=== PATIENT | female | born 1965 | race Two or more races ===

== ENCOUNTER 2020-04-29 09:45 | Inpatient (IN) | payer OTHER ==
[~2020-04-29] VITALS: Ht 165.1 cm; Wt 65.8 kg
[2020-04-29] MEDS ORDERED: INVOKAMET 50-11 EACH PO (15:11)
[2020-04-29] MEDS ORDERED: LEVOTHYROXINE25 MCG PO (15:12)
[2020-04-29] MEDS ORDERED: TOPAMAX PO (15:12)
[2020-04-29] MEDS ORDERED: ARMOUR THYROID60 M1 PO (15:13)
[2020-04-29] MEDS ORDERED: OZEMPIC PO (15:14)
[2020-04-29] MEDS ORDERED: [UNRECOGNIZED DRUG - OTHER] IM (15:15)
[2020-05-03] MEDS ORDERED: OZEMPIC1 MG/0.75 (11:47)
[2020-05-03] MEDS ORDERED: TOPAMAX200 MG PO (11:48)
[2020-05-03] MEDS ORDERED: EMGALITY P120 MG/1 M (11:49)
== END 2020-05-08 14:51 | disposition home or self-care (01) | DRG 330 ==
LOC: O/R 05-03 05:44 → SURH 05-03 13:24 → O/R 05-03 18:00 → SURH 05-08 14:51
PROVIDERS: ADMIT Colon & Rectal Surgery; ATTEND Colon & Rectal Surgery
PROC: 0DJD8ZZ Inspection of Lower Intestinal Tract, Via Natural or Artificial Opening Endoscopic (ICD-10-PCS; 2020-05-03)
PROC: 0DTN4ZZ Resection of Sigmoid Colon, Percutaneous Endoscopic Approach (ICD-10-PCS; principal; 2020-05-03 07:00)
DX: K57.32 Diverticulitis of large intestine without perforation or abscess without bleeding (principal); J95.89 Other postprocedural complications and disorders of respiratory system, not elsewhere classified; J98.11 Atelectasis; E03.8 Other specified hypothyroidism; E11.9 Type 2 diabetes mellitus without complications; Z79.4 Long term (current) use of insulin

== ENCOUNTER 2021-05-05 07:29 | Day surgery (SDC) | payer OTHER ==
[~2021-05-05 07:29] MED LIST: ARMOUR THYROID60 M1 PO; EMGALITY P120 MG/1 M; INVOKAMET 50-11 EACH PO; LEVOTHYROXINE25 MCG PO; OZEMPIC PO; OZEMPIC1 MG/0.75; TOPAMAX PO; TOPAMAX200 MG PO; [UNRECOGNIZED DRUG - OTHER] IM
== END 2021-05-05 11:00 | disposition home or self-care (01) ==
LOC: AMB-ENDOS 07:29
PROVIDERS: ATTEND Colon & Rectal Surgery
DX: K62.4 Stenosis of anus and rectum (principal); K64.0 First degree hemorrhoids; Z20.822 Contact with and (suspected) exposure to COVID-19

== ENCOUNTER 2022-11-21 05:45 | Day surgery (SDC) | payer OTHER ==
[~2022-11-21 05:45] MED LIST changes: +AMOX1TAB5 PO; +NP THYROID60 MG; +TOPAMAX200 MG; +XOPENEX0.63 MG/3
[2022-11-22] MEDS ORDERED: MOUNJARO2.5 MG/0.5 (13:53)
[2022-11-22] MEDS ORDERED: MOUNJARO5 MG/0.5 M (13:53)
== END 2022-11-21 13:05 | disposition home or self-care (01) ==
LOC: AMB-ENDOS 05:45
PROVIDERS: ATTEND Colon & Rectal Surgery
DX: C18.9 Malignant neoplasm of colon, unspecified (principal); K62.4 Stenosis of anus and rectum; K57.32 Diverticulitis of large intestine without perforation or abscess without bleeding; K92.1 Melena; Z88.6 Allergy status to analgesic agent; K64.8 Other hemorrhoids; Z20.822 Contact with and (suspected) exposure to COVID-19; I10 Essential (primary) hypertension; E03.9 Hypothyroidism, unspecified

== ENCOUNTER 2022-11-22 01:55 | Inpatient (IN) | payer OTHER ==
[~2022-11-22] VITALS: Ht 165.1 cm; Wt 71.2 kg
--- NOTE | 2022-11-22 02:55 | NUR ---
SE RECIBE PTE FEMENINA DE 57 ANOS ALERTA Y ORIENTADA X3 QUIEN AL MOMENTO REFIERE SOB. PTE AL MOMENTO SPO2 A 92%. SE KRYSTINA EKG Y SE PRESENTA A DR ALIDA. SE DARIN MUESTRAS BAJO MEDIDAS ACEPTICAS. PTE PEND A RESULTADOS DE LAB.
--- NOTE | 2022-11-22 03:01 | NUR ---
SE REALIZAN MUESTRAS DE YUMIKO POR ORDEN MEDICA, SE REALIZA CANALIZACIONDE VENA, SE COLOCA CANULA DE OXIGENO, EKG, MONITOR CARDIACO, OXIMETRIA Y SE MANTIENE WILLIAMS SPERA DE RESULTADOS DE LABORATORIO.
[2022-11-22] MEDS ORDERED: MOUNJARO5 MG/0.5 M (13:53)
[2022-11-22] MEDS ORDERED: MOUNJARO2.5 MG/0.5 (13:53)
== END 2022-12-05 13:22 | disposition home or self-care (01) | DRG 393 ==
LOC: ER 01:55 → SURG 09:22 → SEC-K 09:22 → SURG 13:23
PROVIDERS: ADMIT Colon & Rectal Surgery; ATTEND Colon & Rectal Surgery
PROC: 3E0F7GC Introduction of Other Therapeutic Substance into Respiratory Tract, Via Natural or Artificial Opening (ICD-10-PCS; 2022-11-22)
PROC: 4A12X4Z Monitoring of Cardiac Electrical Activity, External Approach (ICD-10-PCS; 2022-11-22)
PROC: 3E0F7SF Introduction of Other Gas into Respiratory Tract, Via Natural or Artificial Opening (ICD-10-PCS; 2022-11-22)
PROC: BW21Y0Z Computerized Tomography (CT Scan) of Abdomen and Pelvis using Other Contrast, Unenhanced and Enhanced (ICD-10-PCS; principal; 2022-11-24)
PROC: 02HV33Z Insertion of Infusion Device into Superior Vena Cava, Percutaneous Approach (ICD-10-PCS; 2022-11-26)
PROC: 3E0436Z Introduction of Nutritional Substance into Central Vein, Percutaneous Approach (ICD-10-PCS; 2022-11-26)
PROC: BW21YZZ Computerized Tomography (CT Scan) of Abdomen and Pelvis using Other Contrast (ICD-10-PCS; 2022-11-29)
PROC: BW21ZZZ Computerized Tomography (CT Scan) of Abdomen and Pelvis (ICD-10-PCS; 2022-12-03)
DX: K91.89 Other postprocedural complications and disorders of digestive system (principal); K63.1 Perforation of intestine (nontraumatic); K65.1 Peritoneal abscess; R06.02 Shortness of breath; R14.3 Flatulence; I10 Essential (primary) hypertension; E03.9 Hypothyroidism, unspecified; E11.9 Type 2 diabetes mellitus without complications; Z79.4 Long term (current) use of insulin

== ENCOUNTER 2024-05-15 06:00 | Outpatient (CLI) | payer OTHER ==
[~2024-05-15 06:00] MED LIST changes: +MOUNJARO2.5 MG/0.5; +MOUNJARO5 MG/0.5 M
[2024-05-15 16:14] LABS: HEMATOCRIT 41.5 % (36.0-45.00); HEMOGLOBIN 13.6 g/dL (12.0-15.00); MEAN CORPUSCULAR HEMOGLOBIN 30.2 pg (27.00-32.0); MEAN CORPUSCULAR HGB CONC 32.9 g/dl (32.0-36.0); PLATELET COUNT 237 K/uL (150-450); RED BLOOD COUNT 4.51 M/uL (4.00-6.00); RED CELL DISTRIBUTION WIDTH 14.4 % (11.5-14.5)
== END 2024-05-15 06:10 | disposition home or self-care (01) ==
LOC: LAB 06:00 → ADM 15:00 → EDSTATUS 05-19 15:00 → AMB-ENDOS 05-19 15:00
PROVIDERS: ATTEND Colon & Rectal Surgery
DX: K57.32 Diverticulitis of large intestine without perforation or abscess without bleeding (principal); K92.1 Melena; K62.4 Stenosis of anus and rectum

== ENCOUNTER 2024-09-02 05:25 | Day surgery (SDC) | payer OTHER ==
[2024-09-02] MEDS ORDERED: ONDANSETRON HCL 2 MG/ML VIAL IV STA (08:38)
[2024-09-02] MEDS ORDERED: MIDAZOLAM HCL 2 MG/2 ML VIAL IV ONE (08:45)
[2024-09-02] MEDS ORDERED: fentaNYL CITRATE 50 MCG/ML AMPUL IV PUSH ONE (08:45)
[2024-09-02] MEDS ORDERED: DIPHENHYDRAMINE HCL 50 MG/ML VIAL 1ML IV ONE (08:45)
[2024-09-02] MEDS ORDERED: ONDANSETRON HCL 2 MG/ML VIAL IV ONE (10:15)
== END 2024-09-02 10:35 | disposition home or self-care (01) ==
LOC: AMB-ENDOS 05:25 → CIR.AMB 14:00 → AMB-ENDOS 14:00
PROVIDERS: ATTEND Colon & Rectal Surgery
DX: C18.9 Malignant neoplasm of colon, unspecified (principal); K91.89 Other postprocedural complications and disorders of digestive system; Z88.6 Allergy status to analgesic agent

== ENCOUNTER 2024-09-04 13:53 | Inpatient (IN) | payer OTHER ==
[~2024-09-04] VITALS: Ht 170.2 cm; Wt 72.6 kg
--- NOTE | 2024-09-04 14:16 | NUR ---
PTE ALERTA Y ORIENTADA X3 EN COMPANIA DE FAMILIAR REFIERE VENIR POR DOLOR ABDOMINAL Y VOMITOS LUEGO DE RECIBIR AROLDO COLONOSCOPIA EL MIERCOLES. SE MIDEN S/V Y SE UBICA.
[2024-09-04] MEDS ORDERED: ONDANSETRON HCL 2 MG/ML VIAL IV ONE (16:00)
[2024-09-04] MEDS ORDERED: MEPERIDINE HCL/PF 50 MG/ML VIAL IM ONE (16:00)
[2024-09-04] MEDS ORDERED: 0.9 % SODIUM CHLORIDE 500 ML IV ONE (16:00)
[2024-09-04] MEDS ORDERED: FAMOTIDINE/PF 20 MG/2 ML VIAL IV ONE (16:00)
[2024-09-04] MEDS ORDERED: PIPERACILLIN/TAZOBACTAM SODIUM 3.375 GM VIAL IV ONE (16:15)
[2024-09-04 16:26] LABS: HEMOGLOBIN 14.8 g/dL (12.0-15.00); MEAN CELL VOLUME 90.6 fL (80.00-100.00); MEAN CORPUSCULAR HEMOGLOBIN 30.4 pg (27.00-32.0); MEAN CORPUSCULAR HGB CONC 33.5 g/dl (32.0-36.0); PLATELET COUNT 259 K/uL (150-450); RED BLOOD COUNT 4.86 M/uL (4.00-6.00); RED CELL DISTRIBUTION WIDTH 15.1 % (11.5-14.5)
[2024-09-04] MEDS ORDERED: MEPERIDINE HCL/PF 50 MG/ML VIAL IM PRN (16:45)
[2024-09-04 16:49] LABS: PARTIAL THROMBOPLASTIN TIME 31.6 SECONDS (22.0-34.0)
[2024-09-04 16:56] LABS: BILIRUBIN TOTAL 0.61 mg/dL (0.3-1.2); CALCIUM 10.8 mg/dL (8.5-10.1); CREATININE SERUM 0.66 mg/dL (0.55-1.02); GFR 91.05; GLOBULINA 4.7 G/DL (2.4-3.5); POTASSIUM 3.41 mEq/L (3.5-5.1); TOTAL PROTEIN 7.7 gm/dL (6.4-8.2)
[2024-09-04] MEDS ORDERED: ONDANSETRON HCL 2 MG/ML VIAL IV SCH (17:00)
[2024-09-04 17:01] LABS: INR 0.94; PROTHROMBIN TIME 10.3 SECONDS (9.0-11.5)
--- NOTE | 2024-09-04 17:30 | NUR ---
SE EDUCA A PACIENTE SOBRE TRATAMIENTO MEDICO EL CUAL REFIERE VENIR ENTENDER SE PROCEDE A ADMINISTRAR MEDICAMENTO SAMIA ORDEN MEDICA Y SE DARIN MUESTRAS DE LAB BAJO MEDIDAS ASEPTICAS.
[2024-09-04] MEDS ORDERED: PIPERACILLIN/TAZOBACTAM SODIUM 3.375 GM in 0.9 % SODIUM CHLORIDE 100 ML IV SCH (18:00)
[2024-09-04] MEDS ORDERED: RINGERS SOLUTION,LACTATED 1,000 ML IV ONE (20:30)
[2024-09-04] MEDS ORDERED: RINGERS SOLUTION,LACTATED 1,000 ML IV SCH (20:30)
[2024-09-04 21:15] LABS: URINE APPEARANCE Clear; URINE BILIRRUBIN Negative (NEGATIVE); URINE BLOOD Trace; URINE COLOR Yellow; URINE LEUKOCYTE Negative; URINE NITRATE Negative; URINE UROBILINOGEN 0.2 E.U./dl
[2024-09-04 21:16] LABS: URINE BACTERIA 706.8 uL (0.0-1933); URINE EPITHELIAL CELLS 25.1 uL (0.0-38.8); URINE RBC 41.9 uL (0.0-20.8); URINE WBC 37.5 uL (0.0-23.2)
[2024-09-04 22:15] LABS: URINE GLUCOSE >=1000 MG/DL (NEGATIVE); URINE KETONE 80 (NEGATIVE); URINE PROTEIN 100 (NEGATIVE)
[2024-09-05 02:51] VITALS: BP 123/79; O2SAT 99
[2024-09-05 07:36] LABS: HEMATOCRIT 38.6 % (36.0-45.00); HEMOGLOBIN 13.2 g/dL (12.0-15.00); MEAN CELL VOLUME 90.3 fL (80.00-100.00); MEAN CORPUSCULAR HGB CONC 34.3 g/dl (32.0-36.0); PLATELET COUNT 226 K/uL (150-450); RED BLOOD COUNT 4.27 M/uL (4.00-6.00); RED CELL DISTRIBUTION WIDTH 14.8 % (11.5-14.5)
[2024-09-05 08:39] LABS: ALBUMIN 2.5 gm/dL (3.4-5.0); BILIRUBIN TOTAL 0.53 mg/dL (0.3-1.2); CALCIUM 9.1 mg/dL (8.5-10.1); CREATININE SERUM 0.47 mg/dL (0.55-1.02); GFR 134.71; GLOBULINA 3.2 G/DL (2.4-3.5); PHOSPHOROUS 2.1 mg/dL (2.5-4.9); POTASSIUM 3.5 mEq/L (3.5-5.1); TOTAL PROTEIN 5.7 gm/dL (6.4-8.2)
[2024-09-05 10:16] VITALS: BP 142/87; O2SAT 98
[2024-09-05] MEDS ORDERED: POTASSIUM PHOS,M-BASIC-D-BASIC 3 MM/ML VIAL IV ONE (12:00)
[2024-09-05] MEDS ORDERED: fentaNYL CITRATE 50 MCG/ML AMPUL IV PUSH ONE (14:00)
[2024-09-05] MEDS ORDERED: MIDAZOLAM HCL 2 MG/2 ML VIAL IV PUSH ONE (14:00)
[2024-09-05] MEDS ORDERED: DEXTROSE 50 % IN WATER 0.5 G/ML DISP.SYRIN IV PRN (15:00)
[2024-09-05] MEDS ORDERED: INSULIN LISPRO 1,000 UNIT/10 ML UNITS SUBCUTANEO PRN (15:00)
[2024-09-05] MEDS ORDERED: VANCOMYCIN HCL 1,000 MG VIAL IV SCH (17:00)
[2024-09-05] MEDS ORDERED: AMINO ACIDS 4.25 %/DEXTROSE 5% 1,000 ML PERIFERAL SCH (17:00)
[2024-09-05] MEDS ORDERED: ENOXAPARIN SODIUM 40 MG/0.4 ML SYRINGE SUBCUTANEO SCH (17:00)
[2024-09-05 19:47] VITALS: BP 153/73
[2024-09-06 01:55] VITALS: BP 118/69; O2SAT 97
[2024-09-06 07:45] LABS: ALBUMIN 2.2 gm/dL (3.4-5.0); BILIRUBIN TOTAL 0.67 mg/dL (0.3-1.2); CALCIUM 8.4 mg/dL (8.5-10.1); CREATININE SERUM 0.44 mg/dL (0.55-1.02); GFR 145.37; GLOBULINA 3.4 G/DL (2.4-3.5); MAGNESIUM 1.9 mg/dL (1.8-2.4); POTASSIUM 3.28 mEq/L (3.5-5.1); TOTAL PROTEIN 5.6 gm/dL (6.4-8.2)
[2024-09-06 07:59] LABS: HEMATOCRIT 34.9 % (36.0-45.00); MEAN CELL VOLUME 90.3 fL (80.00-100.00); MEAN CORPUSCULAR HEMOGLOBIN 31.1 pg (27.00-32.0); MEAN CORPUSCULAR HGB CONC 34.4 g/dl (32.0-36.0); PLATELET COUNT 208 K/uL (150-450); RED BLOOD COUNT 3.87 M/uL (4.00-6.00); RED CELL DISTRIBUTION WIDTH 15.2 % (11.5-14.5)
[2024-09-06 08:00] VITALS: BP 137/74; O2SAT 99
[2024-09-06 08:09] LABS: CALCIUM 8.9 mg/dL (8.5-10.1); CREATININE SERUM 0.49 mg/dL (0.55-1.02); GFR 128.39; POTASSIUM 3.27 mEq/L (3.5-5.1); T4 FREE 0.61 NG/ML (0.76-1.46)
[2024-09-06 08:24] LABS: C-REACTIVE PROTEIN 23.3 MG/DL (0.00-0.29); TSH 0.334 uIU/mL (0.358-3.74)
[2024-09-06 08:42] LABS: PHOSPHOROUS 1.5 mg/dL (2.5-4.9)
[2024-09-06 19:26] VITALS: BP 135/81
[2024-09-07 01:18] VITALS: BP 140/75; O2SAT 99
[2024-09-07 07:16] LABS: INR 0.94; PARTIAL THROMBOPLASTIN TIME 30.4 SECONDS (22.0-34.0); PROTHROMBIN TIME 10.3 SECONDS (9.0-11.5)
[2024-09-07 07:40] LABS: BILIRUBIN TOTAL 0.66 mg/dL (0.3-1.2); BILIRUBIN,CONJUGATED 0.18 mg/dL (0.0-0.2); BILIRUBIN,UNCONJUGATED 0.48 mg/dL (0.0-0.6); CALCIUM 8.4 mg/dL (8.5-10.1); CHOL HDL RATIO 7.1 (0-5.0); CREATININE SERUM 0.34 mg/dL (0.55-1.02); GFR 195.74; GLOBULINA 3.1 G/DL (2.4-3.5); TOTAL PROTEIN 5.1 gm/dL (6.4-8.2)
[2024-09-07 08:36] LABS: POTASSIUM 2.85 mEq/L (3.5-5.1)
[2024-09-07 09:14] VITALS: BP 134/75; O2SAT 93
[2024-09-07] MEDS ORDERED: LEVOTHYROXINE SODIUM 100 MCG/VIAL VIAL IV STA (11:17)
[2024-09-07] MEDS ORDERED: POTASSIUM CHLORIDE 20MEQ/100ML H2O PB IV NR (11:30)
[2024-09-07 18:33] VITALS: BP 125/75
[2024-09-08 02:08] VITALS: BP 138/85; O2SAT 97
[2024-09-08 08:15] VITALS: BP 140/78; O2SAT 94
[2024-09-08] MEDS ORDERED: VANCOMYCIN HCL 5 MG/ML REDILUIDO IV SCH ×2 (09:00→17:00)
[2024-09-08 14:08] LABS: HEMATOCRIT 33.6 % (36.0-45.00); HEMOGLOBIN 11.4 g/dL (12.0-15.00); MEAN CELL VOLUME 89.5 fL (80.00-100.00); MEAN CORPUSCULAR HEMOGLOBIN 30.5 pg (27.00-32.0); MEAN CORPUSCULAR HGB CONC 34.1 g/dl (32.0-36.0); PLATELET COUNT 158 K/uL (150-450); RED BLOOD COUNT 3.75 M/uL (4.00-6.00); RED CELL DISTRIBUTION WIDTH 15.2 % (11.5-14.5)
[2024-09-08 14:53] LABS: CALCIUM 8.3 mg/dL (8.5-10.1); CREATININE SERUM 0.31 mg/dL (0.55-1.02); GFR 217.76; MAGNESIUM 1.9 mg/dL (1.8-2.4)
[2024-09-08 15:01] LABS: PHOSPHOROUS 1.7 mg/dL (2.5-4.9); POTASSIUM 2.93 mEq/L (3.5-5.1)
[2024-09-08] MEDS ORDERED: POTASSIUM CHLORIDE 20MEQ/100ML H2O PB IV NR (15:30)
[2024-09-08] MEDS ORDERED: POTASSIUM PHOS,M-BASIC-D-BASIC 15 MM in 0.9 % SODIUM CHLORIDE 250 ML IV NR (15:30)
[2024-09-08 17:59] VITALS: BP 114/57
[2024-09-09] MEDS ORDERED: MEPERIDINE HCL/PF 50 MG/ML VIAL IM PRN (02:00)
[2024-09-09 02:53] VITALS: BP 109/65; O2SAT 90
[2024-09-09 08:40] VITALS: BP 102/58; O2SAT 94
[2024-09-09] MEDS ORDERED: LEVOTHYROXINE SODIUM 100 MCG/VIAL VIAL IV SCH (09:00)
[2024-09-09] MEDS ORDERED: METRONIDAZOLE/SODIUM CHLORIDE 100 ML IV SCH (17:00)
[2024-09-09] MEDS ORDERED: AMPICILLIN SODIUM/SULBACTAM NA 3,000 MG VIAL IV SCH (18:00)
[2024-09-09 20:42] VITALS: BP 113/69
[2024-09-10 03:14] VITALS: BP 108/73; O2SAT 91
[2024-09-10 06:23] LABS: HEMATOCRIT 31.7 % (36.0-45.00); HEMOGLOBIN 10.7 g/dL (12.0-15.00); MEAN CELL VOLUME 90.1 fL (80.00-100.00); MEAN CORPUSCULAR HEMOGLOBIN 30.5 pg (27.00-32.0); MEAN CORPUSCULAR HGB CONC 33.8 g/dl (32.0-36.0); PLATELET COUNT 178 K/uL (150-450); RED BLOOD COUNT 3.51 M/uL (4.00-6.00); RED CELL DISTRIBUTION WIDTH 14.9 % (11.5-14.5)
[2024-09-10 06:54] LABS: ALBUMIN 1.9 gm/dL (3.4-5.0); BILIRUBIN TOTAL 0.45 mg/dL (0.3-1.2); CALCIUM 7.7 mg/dL (8.5-10.1); CREATININE SERUM 0.33 mg/dL (0.55-1.02); GFR 202.6; MAGNESIUM 1.6 mg/dL (1.8-2.4); PHOSPHOROUS 2.7 mg/dL (2.5-4.9); TOTAL PROTEIN 4.9 gm/dL (6.4-8.2)
[2024-09-10 07:26] LABS: C-REACTIVE PROTEIN 15.1 MG/DL (0.00-0.29)
[2024-09-10 07:27] LABS: POTASSIUM 2.56 mEq/L (3.5-5.1)
[2024-09-10] MEDS ORDERED: MAGNESIUM SULFATE IN WATER 50 ML IV NR (08:00)
[2024-09-10] MEDS ORDERED: POTASSIUM CHLORIDE 20MEQ/100ML H2O PB IV NR (10:00)
[2024-09-10 11:02] VITALS: BP 113/80; O2SAT 96
[2024-09-10 18:15] VITALS: BP 126/65; O2SAT 95
[2024-09-11 02:58] VITALS: BP 110/74; O2SAT 95
[2024-09-11] MEDS ORDERED: MORPHINE SULFATE 4 MG/ML CARTRIDGE IV PRN (08:15)
[2024-09-11] MEDS ORDERED: DIATRIZOATE MEGLUMINE, SODIUM 30 ML BOTTLE PO NR ×2 (08:30→08:45)
[2024-09-11 08:31] VITALS: BP 119/71; O2SAT 98
[2024-09-11 18:04] VITALS: BP 139/85; O2SAT 94
[2024-09-12 02:06] VITALS: BP 121/67; O2SAT 95
[2024-09-12 07:38] LABS: CALCIUM 8.3 mg/dL (8.5-10.1); CREATININE SERUM 0.3 mg/dL (0.55-1.02); GFR 226.16; MAGNESIUM 1.8 mg/dL (1.8-2.4); PHOSPHOROUS 2.5 mg/dL (2.5-4.9); POTASSIUM 3.24 mEq/L (3.5-5.1)
[2024-09-12 07:54] LABS: HEMATOCRIT 33.3 % (36.0-45.00); HEMOGLOBIN 11.4 g/dL (12.0-15.00); MEAN CELL VOLUME 88.3 fL (80.00-100.00); MEAN CORPUSCULAR HEMOGLOBIN 30.2 pg (27.00-32.0); MEAN CORPUSCULAR HGB CONC 34.2 g/dl (32.0-36.0); PLATELET COUNT 296 K/uL (150-450); RED BLOOD COUNT 3.77 M/uL (4.00-6.00); RED CELL DISTRIBUTION WIDTH 14.8 % (11.5-14.5)
[2024-09-12] MEDS ORDERED: POTASSIUM CHLORIDE 20MEQ/100ML H2O PB IV ONE (09:00)
[2024-09-12] MEDS ORDERED: TRAMADOL HCL 50 MG TABLET PO PRN (10:00)
[2024-09-12 10:22] VITALS: BP 147/94; O2SAT 96
[2024-09-12 17:54] VITALS: BP 116/78; O2SAT 99
[2024-09-13 03:46] VITALS: BP 140/80; O2SAT 98
[2024-09-13 10:58] VITALS: BP 112/65; O2SAT 96
[2024-09-13 18:20] VITALS: BP 102/70; O2SAT 99
[2024-09-14 02:14] VITALS: BP 110/70; O2SAT 97
[2024-09-14 09:05] VITALS: BP 101/64; O2SAT 98
[2024-09-14 17:52] VITALS: BP 103/57; O2SAT 94
[2024-09-14] MEDS ORDERED: MIDAZOLAM HCL 2 MG/2 ML VIAL IV PUSH ONE (19:45)
[2024-09-14] MEDS ORDERED: fentaNYL CITRATE 50 MCG/ML AMPUL IV PUSH ONE (19:45)
[2024-09-15 01:21] VITALS: BP 113/58; O2SAT 96
[2024-09-15 08:17] VITALS: BP 90/63; O2SAT 99
[2024-09-15 21:48] VITALS: BP 99/60
[2024-09-16 02:15] VITALS: BP 128/74; O2SAT 94
[2024-09-16 08:49] VITALS: BP 125/75; O2SAT 95
[2024-09-16 08:58] LABS: HEMATOCRIT 35.3 % (36.0-45.00); HEMOGLOBIN 11.7 g/dL (12.0-15.00); MEAN CELL VOLUME 90.7 fL (80.00-100.00); MEAN CORPUSCULAR HEMOGLOBIN 30.2 pg (27.00-32.0); MEAN CORPUSCULAR HGB CONC 33.2 g/dl (32.0-36.0); PLATELET COUNT 396 K/uL (150-450); RED BLOOD COUNT 3.89 M/uL (4.00-6.00); RED CELL DISTRIBUTION WIDTH 15.1 % (11.5-14.5)
[2024-09-16] MEDS ORDERED: FAMOtidine 20 MG TABLET PO NR (11:00)
[2024-09-16 12:07] LABS: CALCIUM 8.9 mg/dL (8.5-10.1); CREATININE SERUM 0.49 mg/dL (0.55-1.02); GFR 128.39; MAGNESIUM 1.6 mg/dL (1.8-2.4); PHOSPHOROUS 2.9 mg/dL (2.5-4.9); POTASSIUM 3.8 mEq/L (3.5-5.1)
[2024-09-16 20:04] VITALS: BP 99/58; O2SAT 90
[2024-09-16] MEDS ORDERED: FAMOtidine 20 MG TABLET PO SCH (21:00)
[2024-09-17 02:53] VITALS: BP 131/80; O2SAT 97
[2024-09-17 09:07] VITALS: BP 112/60; O2SAT 96
[2024-09-17] MEDS ORDERED: MEROPENEM 500 MG/VIAL VIAL IV SCH (18:00)
[2024-09-17 18:27] VITALS: BP 121/70; O2SAT 97
[2024-09-18 03:00] VITALS: BP 122/74; O2SAT 97
[2024-09-18 10:23] VITALS: BP 112/71; O2SAT 96
[2024-09-18] MEDS ORDERED: CEFEPIME HCL 2,000 MG VIAL IV SCH (13:06)
[2024-09-18] MEDS ORDERED: METRONIDAZOLE/SODIUM CHLORIDE 100 ML IV SCH (17:00)
[2024-09-18] MEDS ORDERED: FLUCONAZOLE IN NACL,ISO-OSM 400 MG/200 ML PIGGYBAG IV SCH (17:00)
[2024-09-18 18:01] VITALS: BP 118/67
[2024-09-19 02:24] VITALS: BP 123/83; O2SAT 95
[2024-09-19] MEDS ORDERED: FLUCONAZOLE IN NACL,ISO-OSM 100 ML IV SCH (09:00)
[2024-09-19 09:42] VITALS: BP 106/68; O2SAT 97
[2024-09-19] MEDS ORDERED: TRAMADOL HCL 50 MG TABLET PO PRN (18:45)
[2024-09-19 18:51] VITALS: BP 110/63; O2SAT 97
[2024-09-20 01:53] VITALS: BP 101/58; O2SAT 95
[2024-09-20 09:02] VITALS: BP 111/58; O2SAT 98
[2024-09-20] MEDS ORDERED: INTESTINEX680 M1 PO (15:57)
[2024-09-20] MEDS ORDERED: LEVSIN/SL0.125 MG SL (15:57)
[2024-09-20] MEDS ORDERED: TRAMADOL HCL50 MG PO (15:58)
== END 2024-09-20 16:22 | disposition home or self-care (01) | DRG 393 ==
LOC: ER 13:55 → MEDJ 16:58 → SEC-K 16:58 → MEDJ 22:05
PROVIDERS: Internal Medicine Geriatric Medicine; Internal Medicine Infectious Disease; Nurse Practitioner Family; Surgery; ADMIT Colon & Rectal Surgery; ATTEND Colon & Rectal Surgery
PROC: BW21ZZZ Computerized Tomography (CT Scan) of Abdomen and Pelvis (ICD-10-PCS; 2024-09-04)
PROC: 0W9G30Z Drainage of Peritoneal Cavity with Drainage Device, Percutaneous Approach (ICD-10-PCS; principal; 2024-09-05)
PROC: 02HV33Z Insertion of Infusion Device into Superior Vena Cava, Percutaneous Approach (ICD-10-PCS; 2024-09-06)
PROC: B24BZZZ Ultrasonography of Heart with Aorta (ICD-10-PCS; 2024-09-10)
PROC: BW21YZZ Computerized Tomography (CT Scan) of Abdomen and Pelvis using Other Contrast (ICD-10-PCS; 2024-09-11)
PROC: 0W2GX0Z Change Drainage Device in Peritoneal Cavity, External Approach (ICD-10-PCS; 2024-09-14)
PROC: 0W9G30Z Drainage of Peritoneal Cavity with Drainage Device, Percutaneous Approach (ICD-10-PCS; 2024-09-14)
DX: K63.1 Perforation of intestine (nontraumatic) (principal); K65.1 Peritoneal abscess; E11.65 Type 2 diabetes mellitus with hyperglycemia; B96.5 Pseudomonas (aeruginosa) (mallei) (pseudomallei) as the cause of diseases classified elsewhere; B96.1 Klebsiella pneumoniae [K. pneumoniae] as the cause of diseases classified elsewhere; B96.89 Other specified bacterial agents as the cause of diseases classified elsewhere; B95.2 Enterococcus as the cause of diseases classified elsewhere; Z79.4 Long term (current) use of insulin; E78.5 Hyperlipidemia, unspecified; E03.9 Hypothyroidism, unspecified; K52.89 Other specified noninfective gastroenteritis and colitis

== ENCOUNTER 2024-10-15 18:34 | Inpatient (IN) | payer OTHER ==
[~2024-10-15] VITALS: Ht 165.1 cm; Wt 164.7 kg
[~2024-10-15 18:34] MED LIST changes: +INTESTINEX680 M1 PO; +LEVSIN/SL0.125 MG SL; +TRAMADOL HCL50 MG PO
[2024-10-15] MEDS ORDERED: FAMOtidine 10 MG/ML (4ML VIAL) IV ONE (19:45)
[2024-10-15] MEDS ORDERED: ONDANSETRON HCL 2 MG/ML VIAL IV ONE (19:45)
[2024-10-15] MEDS ORDERED: MEPERIDINE HCL/PF 50 MG/ML VIAL IM ONE (19:45)
[2024-10-15] MEDS ORDERED: 0.9 % SODIUM CHLORIDE 1,000 ML IV ONE (19:45)
[2024-10-15] MEDS ORDERED: FAMOTIDINE/PF 20 MG/2 ML VIAL ONE (19:52)
[2024-10-15] MEDS ORDERED: ONDANSETRON HCL 2 MG/ML VIAL ONE (19:52)
[2024-10-15] MEDS ORDERED: DIATRIZOATE MEGLUMINE, SODIUM 30 ML BOTTLE ONE (19:53)
[2024-10-15 20:43] LABS: HEMATOCRIT 35.9 % (36.0-45.00); MEAN CELL VOLUME 89.9 fL (80.00-100.00); MEAN CORPUSCULAR HEMOGLOBIN 29.9 pg (27.00-32.0); MEAN CORPUSCULAR HGB CONC 33.3 g/dl (32.0-36.0); PLATELET COUNT 270 K/uL (150-450); RED CELL DISTRIBUTION WIDTH 15.7 % (11.5-14.5)
[2024-10-15 21:50] LABS: INR 1.03; PARTIAL THROMBOPLASTIN TIME 28.6 SECONDS (22.0-34.0); PROTHROMBIN TIME 11.2 SECONDS (9.0-11.5)
[2024-10-15 21:56] LABS: ALBUMIN 3.2 gm/dL (3.4-5.0); BILIRUBIN TOTAL 0.81 mg/dL (0.3-1.2); CALCIUM 9.3 mg/dL (8.5-10.1); CREATININE SERUM 0.64 mg/dL (0.55-1.02); GFR 94.34; POTASSIUM 4.07 mEq/L (3.5-5.1); TOTAL PROTEIN 7.2 gm/dL (6.4-8.2)
[2024-10-15 22:55] LABS: PH,URINE 5.5 (5.0-8.0); URINE APPEARANCE Cloudy; URINE BILIRRUBIN Small (NEGATIVE); URINE BLOOD Negative; URINE COLOR Orange; URINE GLUCOSE Negative (NEGATIVE); URINE KETONE 15 (NEGATIVE); URINE LEUKOCYTE Small; URINE NITRATE Negative; URINE PROTEIN 30 (NEGATIVE)
[2024-10-15 22:58] LABS: URINE BACTERIA 892.2 uL (0.0-1933); URINE RBC 8.3 uL (0.0-20.8); URINE WBC 133.1 uL (0.0-23.2)
[2024-10-15 23:27] LABS: URINE CAST 0.73 uL (0.0-1.40); URINE MUCUS SCANT
[2024-10-15] MEDS ORDERED: CEFTRIAXONE SODIUM 1,000 MG VIAL IM ONE (23:45)
[2024-10-15] MEDS ORDERED: CEFTRIAXONE SODIUM 1,000 MG VIAL ONE (23:59)
[2024-10-16] MEDS ORDERED: LIDOCAINE HCL VISCOUS 20MG/ML BLIST 15ML MM ONE (01:42)
[2024-10-16] MEDS ORDERED: METRONIDAZOLE/SODIUM CHLORIDE 100 ML IV SCH (09:00)
[2024-10-16] MEDS ORDERED: METRONIDAZOLE/SODIUM CHLORIDE 500 MG/100 ML PIGGYBACK IV ONE (10:23)
[2024-10-16] MEDS ORDERED: MEPERIDINE HCL/PF 50 MG/ML VIAL IM ONE (10:30)
[2024-10-16] MEDS ORDERED: PANTOPRAZOLE SODIUM 40 MG in 0.9 % SODIUM CHLORIDE 8 ML IV PUSH SCH (17:00)
[2024-10-16] MEDS ORDERED: DEXTROSE 5 % AND 0.9 % NACL 1,000 ML IV SCH (17:45)
[2024-10-16] MEDS ORDERED: MEPERIDINE HCL/PF 25 MG/ML VIAL IM SCH (18:00)
[2024-10-16] MEDS ORDERED: INSULIN LISPRO 1,000 UNIT/10 ML UNITS SUBCUTANEO PRN (18:00)
[2024-10-16] MEDS ORDERED: DEXTROSE 50 % IN WATER 0.5 G/ML DISP.SYRIN IV PRN (18:00)
[2024-10-16] MEDS ORDERED: ACETAMINOPHEN 500 MG GEL..CAP PO PRN (18:00)
[2024-10-16] MEDS ORDERED: ONDANSETRON HCL 4 MG in DEXTROSE 5 % IN WATER 50 ML IV PRN (18:00)
[2024-10-16] MEDS ORDERED: PIPERACILLIN/TAZOBACTAM SODIUM 3.375 GM in 0.9 % SODIUM CHLORIDE 100 ML IV SCH (18:00)
[2024-10-16] MEDS ORDERED: hydrALAZINE HCL 20 MG VIAL IV PRN (18:00)
[2024-10-16 21:07] VITALS: BP 113/72; O2SAT 97
[2024-10-16] MEDS ORDERED: DEXTROSE 5 %-0.45 % SOD CHLORD 1,000 ML IV SCH (21:45)
[2024-10-16 22:15] VITALS: BP 107/64; O2SAT 95
[2024-10-17 01:04] VITALS: BP 116/74; O2SAT 95
[2024-10-17] MEDS ORDERED: LEVOTHYROXINE SODIUM 25 MCG TABLET PO SCH (06:00)
[2024-10-17 07:57] LABS: INR 1.16; PARTIAL THROMBOPLASTIN TIME 31.6 SECONDS (22.0-34.0); PROTHROMBIN TIME 12.5 SECONDS (9.0-11.5)
[2024-10-17 08:00] VITALS: BP 120/62; O2SAT 95
[2024-10-17 08:28] LABS: ALBUMIN 2.7 gm/dL (3.4-5.0); BILIRUBIN TOTAL 0.65 mg/dL (0.3-1.2); BILIRUBIN,CONJUGATED 0.17 mg/dL (0.0-0.2); BILIRUBIN,UNCONJUGATED 0.48 mg/dL (0.0-0.6); C-REACTIVE PROTEIN 13.3 MG/DL (0.00-0.29); CALCIUM 8.1 mg/dL (8.5-10.1); CHOL HDL RATIO 3.7 (0-5.0); CREATININE SERUM 0.45 mg/dL (0.55-1.02); GFR 141.65; GLOBULINA 3.3 G/DL (2.4-3.5); POTASSIUM 3.82 mEq/L (3.5-5.1)
[2024-10-17 08:38] LABS: HEMATOCRIT 30.4 % (36.0-45.00); HEMOGLOBIN 10.3 g/dL (12.0-15.00); MEAN CELL VOLUME 90.2 fL (80.00-100.00); MEAN CORPUSCULAR HEMOGLOBIN 30.5 pg (27.00-32.0); MEAN CORPUSCULAR HGB CONC 33.8 g/dl (32.0-36.0); PLATELET COUNT 222 K/uL (150-450); RED BLOOD COUNT 3.37 M/uL (4.00-6.00); RED CELL DISTRIBUTION WIDTH 14.9 % (11.5-14.5)
[2024-10-17 08:56] LABS: ERYTHROCYTE SEDIMENTATION RATE 45 mm/hr
[2024-10-17] MEDS ORDERED: MEROPENEM 500 MG/VIAL VIAL IV SCH (14:00)
[2024-10-17] MEDS ORDERED: BUTALB/ACETAMINOPHEN/CAFFEINE 1 TAB TABLET PO PRN (14:45)
[2024-10-17] MEDS ORDERED: VANCOMYCIN HCL 1,000 MG VIAL ONE ×2 (15:12→23:17)
[2024-10-17] MEDS ORDERED: VANCOMYCIN HCL 1,000 MG VIAL IV SCH (17:00)
[2024-10-17 17:41] VITALS: BP 119/55; O2SAT 98
[2024-10-18] VITALS: BP 93/52; O2SAT 95
[2024-10-18 08:00] VITALS: BP 106/69; O2SAT 96
[2024-10-18] MEDS ORDERED: INTESTINEX680 M1 PO (11:29)
[2024-10-18] MEDS ORDERED: POLYETHYLENE GLYCOL 3350 17 GM BLIST.PACK PO NR (14:00)
[2024-10-18] MEDS ORDERED: VANCOMYCIN HCL 1,000 MG VIAL ONE ×2 (14:16→23:09)
[2024-10-18 16:00] VITALS: BP 110/60; O2SAT 97
[2024-10-19] VITALS: BP 100/55; O2SAT 97
[2024-10-19 08:45] VITALS: BP 96/69; O2SAT 97
[2024-10-19] MEDS ORDERED: POLYETHYLENE GLYCOL 3350 17 GM BLIST.PACK PO SCH (09:00)
[2024-10-19 12:20] LABS: HEMATOCRIT 28.1 % (36.0-45.00); MEAN CELL VOLUME 87.3 fL (80.00-100.00); MEAN CORPUSCULAR HGB CONC 34.9 g/dl (32.0-36.0); PLATELET COUNT 219 K/uL (150-450); RED BLOOD COUNT 3.22 M/uL (4.00-6.00); RED CELL DISTRIBUTION WIDTH 14.7 % (11.5-14.5)
[2024-10-19 12:24] LABS: MEAN CORPUSCULAR HEMOGLOBIN 30.4 pg (27.00-32.0)
[2024-10-19 12:25] LABS: HEMOGLOBIN 9.8 g/dL (12.0-15.00)
[2024-10-19 12:34] LABS: ERYTHROCYTE SEDIMENTATION RATE 58 mm/hr
[2024-10-19 12:46] LABS: ALBUMIN 2.6 gm/dL (3.4-5.0); BILIRUBIN TOTAL 0.42 mg/dL (0.3-1.2); C-REACTIVE PROTEIN 14.2 MG/DL (0.00-0.29); CALCIUM 8.6 mg/dL (8.5-10.1); CREATININE SERUM 0.51 mg/dL (0.55-1.02); GFR 122.59; GLOBULINA 3.3 G/DL (2.4-3.5); POTASSIUM 3.11 mEq/L (3.5-5.1); TOTAL PROTEIN 5.9 gm/dL (6.4-8.2)
[2024-10-19] MEDS ORDERED: VANCOMYCIN HCL 1,000 MG VIAL ONE ×2 (14:51→23:15)
[2024-10-19 16:00] VITALS: BP 110/60; O2SAT 97
[2024-10-19] MEDS ORDERED: POTASSIUM CHLORIDE IN WATER 100 ML IV NR (16:30)
[2024-10-20 01:32] VITALS: BP 139/72; O2SAT 99
[2024-10-20 08:00] VITALS: BP 118/70; O2SAT 97
[2024-10-20] MEDS ORDERED: VANCOMYCIN HCL 1,000 MG VIAL ONE (14:50)
[2024-10-20 17:02] VITALS: BP 116/62; O2SAT 98
== END 2024-10-20 17:14 | disposition home or self-care (01) | DRG 390 ==
LOC: ER 18:37 → SURH 10-16 18:37
PROVIDERS: General Practice; Internal Medicine; ADMIT Colon & Rectal Surgery; ATTEND Colon & Rectal Surgery
PROC: BW21YZZ Computerized Tomography (CT Scan) of Abdomen and Pelvis using Other Contrast (ICD-10-PCS; principal; 2024-10-15)
DX: K56.699 Other intestinal obstruction unspecified as to partial versus complete obstruction (principal); N73.8 Other specified female pelvic inflammatory diseases; I10 Essential (primary) hypertension; E78.5 Hyperlipidemia, unspecified; E03.8 Other specified hypothyroidism; E11.9 Type 2 diabetes mellitus without complications; Z79.4 Long term (current) use of insulin

== ENCOUNTER 2024-11-06 08:23 | Inpatient (IN) | payer OTHER ==
[~2024-11-06] VITALS: Ht 162.6 cm; Wt 72.6 kg
--- NOTE | 2024-11-06 08:48 | NUR ---
SE RECIBE PTE ALERTA Y ORIENTADA X3. REFIERE TENER VOMITOS Y DOLOR ABDOMINAL HACE 3 BROWNING. SE MIDEN S/V Y SE UBICA
[2024-11-06] MEDS ORDERED: 0.9 % SODIUM CHLORIDE 1,000 ML IV ONE (09:00)
[2024-11-06] MEDS ORDERED: ONDANSETRON HCL 2 MG/ML VIAL IV ONE (09:00)
[2024-11-06] MEDS ORDERED: MORPHINE SULFATE 4 MG/ML VIAL IV ONE (09:00)
[2024-11-06] MEDS ORDERED: FAMOtidine 10 MG/ML (4ML VIAL) IV ONE (09:00)
[2024-11-06] MEDS ORDERED: ONDANSETRON HCL 2 MG/ML VIAL ONE (09:03)
[2024-11-06] MEDS ORDERED: FAMOTIDINE/PF 20 MG/2 ML VIAL ONE (09:03)
--- NOTE | 2024-11-06 09:09 | NUR ---
RN PATTERSON EDUCA A PACIENTE SOBRE PROCESO DE KRYSTINA DE MUESTRAS, CANALIZACION Y ADMINISTRACION DE MEDICAMENTOS, REFIERE ENTENDER. SE EJECUTAN ORDENES BAJO MEDIDAS ASEPTICAS.
[2024-11-06 09:37] LABS: HEMATOCRIT 40.2 % (36.0-45.00); HEMOGLOBIN 13.1 g/dL (12.0-15.00); MEAN CELL VOLUME 90.6 fL (80.00-100.00); MEAN CORPUSCULAR HEMOGLOBIN 29.6 pg (27.00-32.0); MEAN CORPUSCULAR HGB CONC 32.6 g/dl (32.0-36.0); PLATELET COUNT 313 K/uL (150-450); RED BLOOD COUNT 4.43 M/uL (4.00-6.00); RED CELL DISTRIBUTION WIDTH 14.9 % (11.5-14.5)
[2024-11-06 09:50] LABS: INR 1.05; PARTIAL THROMBOPLASTIN TIME 32.9 SECONDS (22.0-34.0); PROTHROMBIN TIME 11.4 SECONDS (9.0-11.5)
[2024-11-06 10:03] LABS: ALBUMIN 3.6 gm/dL (3.4-5.0); BILIRUBIN TOTAL 0.62 mg/dL (0.3-1.2); CALCIUM 9.5 mg/dL (8.5-10.1); CREATININE SERUM 0.68 mg/dL (0.55-1.02); GFR 87.96; GLOBULINA 4.6 G/DL (2.4-3.5); POTASSIUM 4.08 mEq/L (3.5-5.1); TOTAL PROTEIN 8.2 gm/dL (6.4-8.2)
[2024-11-06] MEDS ORDERED: PIPERACILLIN/TAZOBACTAM SODIUM 3.375 GM VIAL IV ONE ×2 (12:15→12:50)
[2024-11-06] MEDS ORDERED: CIPROFLOXACIN IN 5 % DEXTROSE 400 MG/200 ML PIGGYBAG IV ONE ×2 (12:15→12:50)
--- NOTE | 2024-11-06 13:08 | NUR ---
PACIENTE ALERTA Y ORIENTADA X3. SE EDUCA A PACIENTE SOBRE PROCESO DE ADMINISTRACION DE NUEVOS MEDICAMENTOS, REFIERE ENTENDER. SE EJECUTAN ORDENES BAJO MEDIDAS ASEPTICAS. SE EDUCA A PACIENTE SOBRE COLOCACION DE NGT DEBIDO A OBSTRUCCION, PACIENTE REHUSA EL MISMO. SE RE EDUCA A PACIENTE SOBRE IMPORTANCIA DE LA COLOCACION DEL MISMO, PACIENTE VUELVE A REHUSAR. SE INFORMA A DRA. SAMPSON.
[2024-11-06 17:00] VITALS: BP 97/64; O2SAT 95
[2024-11-06] MEDS ORDERED: MORPHINE SULFATE 4 MG/ML VIAL IV SCH (17:00)
[2024-11-06] MEDS ORDERED: MORPHINE SULFATE 4 MG/ML CARTRIDGE IV SCH (21:00)
[2024-11-07 01:59] VITALS: BP 92/59; O2SAT 98
[2024-11-07 08:00] VITALS: BP 103/63; O2SAT 96
[2024-11-07 08:10] LABS: HEMOGLOBIN 11.2 g/dL (12.0-15.00); MEAN CELL VOLUME 88.6 fL (80.00-100.00); MEAN CORPUSCULAR HEMOGLOBIN 30.1 pg (27.00-32.0); PLATELET COUNT 243 K/uL (150-450); RED BLOOD COUNT 3.72 M/uL (4.00-6.00); RED CELL DISTRIBUTION WIDTH 14.9 % (11.5-14.5)
[2024-11-07 08:41] LABS: ALBUMIN 2.9 gm/dL (3.4-5.0); BILIRUBIN TOTAL 0.36 mg/dL (0.3-1.2); CALCIUM 8.5 mg/dL (8.5-10.1); CREATININE SERUM 0.61 mg/dL (0.55-1.02); GFR 99.71; GLOBULINA 3.4 G/DL (2.4-3.5); POTASSIUM 4.2 mEq/L (3.5-5.1); TOTAL PROTEIN 6.3 gm/dL (6.4-8.2)
[2024-11-07] MEDS ORDERED: ACETAMINOPHEN 500 MG GEL..CAP PO PRN (10:30)
[2024-11-07] MEDS ORDERED: MEPERIDINE HCL/PF 25 MG/ML VIAL IV PRN (10:30)
[2024-11-07] MEDS ORDERED: ONDANSETRON HCL 2 MG/ML VIAL IV PRN (10:30)
[2024-11-07] MEDS ORDERED: FAMOTIDINE/PF 20 MG/2 ML VIAL IV NR (11:00)
[2024-11-07 16:00] VITALS: BP 95/63; O2SAT 95
[2024-11-07] MEDS ORDERED: FAMOTIDINE/PF 20 MG in 0.9 % SODIUM CHLORIDE 8 ML IV PUSH SCH (21:00)
[2024-11-08] VITALS: BP 91/55; O2SAT 96
[2024-11-08] MEDS ORDERED: PATIENTS OWN MEDICATION (MEDICAMENTO EN PISO) PO SCH (06:00)
[2024-11-08] MEDS ORDERED: DEXTROSE 50 % IN WATER 0.5 G/ML DISP.SYRIN IV PRN (07:45)
[2024-11-08] MEDS ORDERED: INSULIN LISPRO 1,000 UNIT/10 ML UNITS SUBCUTANEO PRN (07:45)
[2024-11-08 08:00] VITALS: BP 98/55; O2SAT 98
[2024-11-08] MEDS ORDERED: AMINO ACIDS 1 EACH TABLET PO SCH (09:00)
[2024-11-08] MEDS ORDERED: DIPHENHYDRAMINE HCL 50 MG/ML VIAL 1ML IV PRN (12:30)
[2024-11-08 16:00] VITALS: BP 116/70; O2SAT 98
[2024-11-08] MEDS ORDERED: AA 4.25%/CAL/LYTES/DEXT 5% 1,000 ML PERIFERAL SCH (17:00)
[2024-11-08 19:34] LABS: CALCIUM 8.8 mg/dL (8.5-10.1); CHOL HDL RATIO 2.6 (0-5.0); CREATININE SERUM 0.44 mg/dL (0.55-1.02); GFR 145.37; POTASSIUM 3.97 mEq/L (3.5-5.1)
[2024-11-09] VITALS: BP 110/60; O2SAT 97
[2024-11-09 07:27] LABS: CREATININE SERUM 0.44 mg/dL (0.55-1.02); GFR 145.37; MAGNESIUM 1.5 mg/dL (1.8-2.4); PHOSPHOROUS 2.6 mg/dL (2.5-4.9); POTASSIUM 3.87 mEq/L (3.5-5.1)
[2024-11-09 07:43] LABS: HEMATOCRIT 31.9 % (36.0-45.00); HEMOGLOBIN 11.2 g/dL (12.0-15.00); MEAN CELL VOLUME 86.2 fL (80.00-100.00); MEAN CORPUSCULAR HEMOGLOBIN 30.3 pg (27.00-32.0); MEAN CORPUSCULAR HGB CONC 35.2 g/dl (32.0-36.0); PLATELET COUNT 264 K/uL (150-450)
[2024-11-09 09:00] VITALS: BP 104/58; O2SAT 100
[2024-11-09] MEDS ORDERED: GABAPENTIN 300 MG CAPSULE PO PRN (13:00)
[2024-11-09 16:03] VITALS: BP 107/68; O2SAT 98
[2024-11-09] MEDS ORDERED: AMINO ACIDS 4.25%/DEXTROSE 10% 1,000 ML CENTRAL SCH (17:00)
[2024-11-09] MEDS ORDERED: MEROPENEM 500 MG/VIAL VIAL IV SCH (20:00)
[2024-11-09] MEDS ORDERED: VANCOMYCIN HCL 1,000 MG VIAL ONE (20:38)
[2024-11-09] MEDS ORDERED: VANCOMYCIN HCL 1,000 MG VIAL IV SCH (21:00)
[2024-11-10] VITALS: BP 114/67; O2SAT 97
[2024-11-10] MEDS ORDERED: VANCOMYCIN HCL 1,000 MG VIAL ONE ×2 (07:29→20:15)
[2024-11-10 08:00] VITALS: BP 94/85; O2SAT 98
[2024-11-10 08:34] LABS: HEMATOCRIT 30.6 % (36.0-45.00); HEMOGLOBIN 10.7 g/dL (12.0-15.00); MEAN CELL VOLUME 85.7 fL (80.00-100.00); MEAN CORPUSCULAR HEMOGLOBIN 30.1 pg (27.00-32.0); MEAN CORPUSCULAR HGB CONC 35.1 g/dl (32.0-36.0); PLATELET COUNT 228 K/uL (150-450); RED BLOOD COUNT 3.57 M/uL (4.00-6.00)
[2024-11-10 08:59] LABS: ALBUMIN 2.9 gm/dL (3.4-5.0); BILIRUBIN TOTAL 0.31 mg/dL (0.3-1.2); CREATININE SERUM 0.39 mg/dL (0.55-1.02); GFR 167.08; PHOSPHOROUS 2.1 mg/dL (2.5-4.9); POTASSIUM 3.21 mEq/L (3.5-5.1); TOTAL PROTEIN 5.9 gm/dL (6.4-8.2)
[2024-11-10] MEDS ORDERED: ENOXAPARIN SODIUM 40 MG/0.4 ML SYRINGE SUBCUTANEO SCH (09:00)
[2024-11-10 09:07] LABS: C-REACTIVE PROTEIN 0.74 MG/DL (0.00-0.29); MAGNESIUM 1.4 mg/dL (1.8-2.4)
[2024-11-10 16:18] VITALS: BP 96/62; O2SAT 98
[2024-11-11 00:02] VITALS: BP 110/76; O2SAT 96
[2024-11-11] MEDS ORDERED: VANCOMYCIN HCL 1,000 MG VIAL ONE ×2 (06:50→09:49)
[2024-11-11] MEDS ORDERED: MAGNESIUM SULFATE IN WATER 50 ML IV NR (07:00)
[2024-11-11 08:21] VITALS: BP 100/67; O2SAT 96
[2024-11-11] MEDS ORDERED: POTASSIUM CHLORIDE 20MEQ/100ML H2O PB IV NR (09:00)
[2024-11-11] MEDS ORDERED: POTASSIUM PHOS,M-BASIC-D-BASIC 3 MM/ML VIAL IV ONE (16:00)
[2024-11-11 21:15] VITALS: BP 92/61; O2SAT 97
[2024-11-12 00:45] VITALS: BP 102/73; O2SAT 98
[2024-11-12 07:54] LABS: HEMATOCRIT 28.6 % (36.0-45.00); HEMOGLOBIN 10.1 g/dL (12.0-15.00); MEAN CORPUSCULAR HEMOGLOBIN 30.4 pg (27.00-32.0); MEAN CORPUSCULAR HGB CONC 35.4 g/dl (32.0-36.0); PLATELET COUNT 193 K/uL (150-450); RED BLOOD COUNT 3.33 M/uL (4.00-6.00); RED CELL DISTRIBUTION WIDTH 15.3 % (11.5-14.5)
[2024-11-12 08:09] VITALS: BP 103/64; O2SAT 97
[2024-11-12 08:34] LABS: CALCIUM 8.8 mg/dL (8.5-10.1); CREATININE SERUM 0.41 mg/dL (0.55-1.02); GFR 157.71; MAGNESIUM 1.6 mg/dL (1.8-2.4); PHOSPHOROUS 3.3 mg/dL (2.5-4.9); POTASSIUM 3.46 mEq/L (3.5-5.1); TSH 0.57 uIU/mL (0.358-3.74)
[2024-11-12 16:00] VITALS: BP 104/69; O2SAT 97
== END 2024-11-12 20:45 | disposition home or self-care (01) | DRG 388 ==
LOC: ER 08:26 → SURH 14:09 → SEC-K 14:09 → SURH 15:29
PROVIDERS: General Practice; Internal Medicine; Internal Medicine Geriatric Medicine; Internal Medicine Infectious Disease; ADMIT Colon & Rectal Surgery; ATTEND Colon & Rectal Surgery
PROC: BW21ZZZ Computerized Tomography (CT Scan) of Abdomen and Pelvis (ICD-10-PCS; 2024-11-06)
PROC: 02HV33Z Insertion of Infusion Device into Superior Vena Cava, Percutaneous Approach (ICD-10-PCS; principal; 2024-11-09)
DX: K56.50 Intestinal adhesions [bands], unspecified as to partial versus complete obstruction (principal); K65.1 Peritoneal abscess; E03.9 Hypothyroidism, unspecified; E11.9 Type 2 diabetes mellitus without complications; Z79.4 Long term (current) use of insulin; E78.5 Hyperlipidemia, unspecified

== ENCOUNTER 2024-11-18 08:53 | Inpatient (IN) | payer OTHER ==
[~2024-11-18] VITALS: Ht 165.1 cm; Wt 61.2 kg
[2024-11-18] MEDS ORDERED: FAMOtidine 10 MG/ML (4ML VIAL) IV ONE (09:45)
[2024-11-18] MEDS ORDERED: ONDANSETRON HCL 2 MG/ML VIAL IV ONE (09:45)
[2024-11-18] MEDS ORDERED: MORPHINE SULFATE 4 MG/ML CARTRIDGE IV ONE (09:45)
[2024-11-18] MEDS ORDERED: 0.9 % SODIUM CHLORIDE 1,000 ML IV ONE (09:45)
[2024-11-18] MEDS ORDERED: ONDANSETRON HCL 2 MG/ML VIAL ONE (09:52)
[2024-11-18] MEDS ORDERED: FAMOTIDINE/PF 20 MG/2 ML VIAL ONE (09:52)
[2024-11-18] MEDS ORDERED: MEPERIDINE HCL/PF 25 MG/ML VIAL IV STA (10:05)
[2024-11-18 10:12] LABS: HEMATOCRIT 32.3 % (36.0-45.00); HEMOGLOBIN 11.7 g/dL (12.0-15.00); MEAN CELL VOLUME 85.5 fL (80.00-100.00); MEAN CORPUSCULAR HEMOGLOBIN 30.9 pg (27.00-32.0); MEAN CORPUSCULAR HGB CONC 36.2 g/dl (32.0-36.0); PLATELET COUNT 247 K/uL (150-450); RED BLOOD COUNT 3.78 M/uL (4.00-6.00); RED CELL DISTRIBUTION WIDTH 15.8 % (11.5-14.5)
[2024-11-18 10:34] LABS: INR 1.1; PARTIAL THROMBOPLASTIN TIME 29.6 SECONDS (22.0-34.0); PROTHROMBIN TIME 11.9 SECONDS (9.0-11.5)
[2024-11-18 11:19] LABS: URINE APPEARANCE Clear; URINE BILIRRUBIN Moderate (NEGATIVE); URINE BLOOD Negative; URINE COLOR Dark Yellow; URINE GLUCOSE Negative (NEGATIVE); URINE LEUKOCYTE Negative; URINE NITRATE Negative; URINE PROTEIN 30 (NEGATIVE)
[2024-11-18 11:22] LABS: URINE BACTERIA 57.5 uL (0.0-1933); URINE CAST 6.33 uL (0.0-1.40); URINE EPITHELIAL CELLS 32.6 uL (0.0-38.8); URINE RBC 12.8 uL (0.0-20.8); URINE WBC 16.4 uL (0.0-23.2)
[2024-11-18 11:44] LABS: BILIRUBIN TOTAL 0.47 mg/dL (0.3-1.2); CALCIUM 8.9 mg/dL (8.5-10.1); CREATININE SERUM 0.73 mg/dL (0.55-1.02); GFR 81.05; GLOBULINA 3.9 G/DL (2.4-3.5); POTASSIUM 3.9 mEq/L (3.5-5.1); TOTAL PROTEIN 6.9 gm/dL (6.4-8.2)
[2024-11-18 13:55] LABS: URINE KETONE 40 (NEGATIVE)
[2024-11-18 13:56] LABS: URINE MUCUS HEAVY
[2024-11-18] MEDS ORDERED: MORPHINE SULFATE 4 MG/ML VIAL IV PRN (15:15)
[2024-11-18] MEDS ORDERED: ONDANSETRON HCL 2 MG/ML VIAL IV PRN (15:15)
[2024-11-18] MEDS ORDERED: RINGERS SOLUTION,LACTATED 1,000 ML IV SCH (15:15)
[2024-11-18 16:15] VITALS: BP 97/56; O2SAT 98
[2024-11-18 16:46] LABS: INR 1.17; PARTIAL THROMBOPLASTIN TIME 31.4 SECONDS (22.0-34.0); PROTHROMBIN TIME 12.6 SECONDS (9.0-11.5)
[2024-11-18 16:56] LABS: BILIRUBIN TOTAL 0.45 mg/dL (0.3-1.2); CALCIUM 8.5 mg/dL (8.5-10.1); CREATININE SERUM 0.66 mg/dL (0.55-1.02); GFR 91.05; GLOBULINA 3.6 G/DL (2.4-3.5); POTASSIUM 3.81 mEq/L (3.5-5.1); TOTAL PROTEIN 6.6 gm/dL (6.4-8.2)
[2024-11-18] MEDS ORDERED: ENOXAPARIN SODIUM 40 MG/0.4 ML SYRINGE SUBCUTANEO SCH (17:53)
[2024-11-18] MEDS ORDERED: AMINO ACIDS 4.25 %/DEXTROSE 5% 1,000 ML PERIFERAL SCH (18:00)
[2024-11-18] MEDS ORDERED: PIPERACILLIN/TAZOBACTAM SODIUM 3.375 GM in DEXTROSE 5 % IN WATER 100 ML IV SCH (18:00)
[2024-11-18] MEDS ORDERED: PIPERACILLIN/TAZOBACTAM SODIUM 3.375 GM VIAL IV ONE (18:36)
[2024-11-18] MEDS ORDERED: ENOXAPARIN SODIUM 40 MG/0.4 ML SYRINGE SUBCUTANEO ONE (18:36)
[2024-11-18] MEDS ORDERED: VANCOMYCIN HCL 1,000 MG VIAL ONE (20:44)
[2024-11-18] MEDS ORDERED: FAMOTIDINE/PF 20 MG/2 ML VIAL IV SCH (21:00)
[2024-11-18] MEDS ORDERED: VANCOMYCIN HCL 1,000 MG VIAL IV SCH (21:00)
[2024-11-18] MEDS ORDERED: DIPHENHYDRAMINE HCL 50 MG/ML VIAL 1ML IV STA (23:32)
[2024-11-18] MEDS ORDERED: METHYLPREDNISOLONE SOD SUCC 40 MG VIAL IV STA (23:32)
[2024-11-19 00:58] VITALS: BP 100/67; O2SAT 95
[2024-11-19] MEDS ORDERED: PATIENTS OWN MEDICATION (MEDICAMENTO EN PISO) PO SCH (06:00)
[2024-11-19 08:00] VITALS: BP 90/55; O2SAT 94
[2024-11-19 10:20] LABS: HEMATOCRIT 33.3 % (36.0-45.00); MEAN CELL VOLUME 89.9 fL (80.00-100.00); MEAN CORPUSCULAR HEMOGLOBIN 29.7 pg (27.00-32.0); PLATELET COUNT 243 K/uL (150-450); RED CELL DISTRIBUTION WIDTH 15.8 % (11.5-14.5)
[2024-11-19 10:48] LABS: CALCIUM 8.7 mg/dL (8.5-10.1); CREATININE SERUM 0.7 mg/dL (0.55-1.02); GFR 85.07; MAGNESIUM 1.9 mg/dL (1.8-2.4); PHOSPHOROUS 3.3 mg/dL (2.5-4.9); POTASSIUM 4.45 mEq/L (3.5-5.1); TSH 0.39 uIU/mL (0.358-3.74)
[2024-11-19 10:54] LABS: C-REACTIVE PROTEIN 2.01 MG/DL (0.00-0.29)
[2024-11-19 16:00] VITALS: BP 90/56; O2SAT 96
[2024-11-20 00:30] VITALS: BP 98/64; O2SAT 95
[2024-11-20 08:00] VITALS: BP 103/66; O2SAT 94
[2024-11-20 16:33] VITALS: BP 109/56; O2SAT 100
[2024-11-20] MEDS ORDERED: MORPHINE SULFATE 4 MG/ML VIAL IV PRN (17:30)
[2024-11-21 00:26] VITALS: BP 120/60; O2SAT 97
[2024-11-21 08:56] VITALS: BP 84/44; O2SAT 98
[2024-11-21 12:50] VITALS: BP 109/62; O2SAT 100
[2024-11-21] MEDS ORDERED: MEROPENEM 500 MG/VIAL VIAL IV SCH (14:00)
[2024-11-21 16:00] VITALS: BP 104/68; O2SAT 96
[2024-11-22] VITALS: BP 104/68; O2SAT 95
[2024-11-22 09:05] VITALS: BP 88/49; O2SAT 96
[2024-11-22 16:00] VITALS: BP 140/64; O2SAT 96
[2024-11-23] VITALS: BP 137/79; O2SAT 97
[2024-11-23 07:09] LABS: INR 1.07; PARTIAL THROMBOPLASTIN TIME 26.5 SECONDS (22.0-34.0); PROTHROMBIN TIME 11.6 SECONDS (9.0-11.5)
[2024-11-23 07:21] LABS: HEMATOCRIT 25.9 % (36.0-45.00); MEAN CELL VOLUME 85.9 fL (80.00-100.00); MEAN CORPUSCULAR HGB CONC 35.1 g/dl (32.0-36.0); PLATELET COUNT 204 K/uL (150-450); RED BLOOD COUNT 3.02 M/uL (4.00-6.00); RED CELL DISTRIBUTION WIDTH 15.6 % (11.5-14.5)
[2024-11-23 07:32] LABS: HEMOGLOBIN 9.1 g/dL (12.0-15.00); MEAN CORPUSCULAR HEMOGLOBIN 30.1 pg (27.00-32.0)
[2024-11-23 07:52] LABS: ALBUMIN 2.6 gm/dL (3.4-5.0); ALKALINE PHOSPHATASE 51 U/L (50-136); ALT/SGPT 12 U/L (12-78); ANION GAP 6 (10.0-20.0); AST/SGOT 10 U/L (15-37); BILIRUBIN TOTAL 0.28 mg/dL (0.3-1.2); BILIRUBIN,CONJUGATED < 0.10 mg/dL (0.0-0.2); BILIRUBIN,UNCONJUGATED 0.18 mg/dL (0.0-0.6); BLOOD UREA NITROGEN 4 mg/dL (7-18); BUN CREA RATIO 11 (7.0-25.0); CALCIUM 8.7 mg/dL (8.5-10.1); CARBON DIOXIDE 29 mEq/L (21-32); CHLORIDE 111 mmol/L (98-107); CHOL HDL RATIO 3.2 (0-5.0); CHOLESTEROL 110 mg/dL (0-200); CREATININE SERUM 0.38 mg/dL (0.55-1.02); GFR 172.17; GLOBULINA 2.8 G/DL (2.4-3.5); GLUCOSE FASTING 99 mg/dL (65-100); HDL 34 mg/dl (40-60); LDL 51 mg/dl (0-130); OSMOLALITY SERUM 282 MOSM/KG (275-295); POTASSIUM 3.24 mEq/L (3.5-5.1); SODIUM 143 mmol/L (136-145); TOTAL PROTEIN 5.4 gm/dL (6.4-8.2); TRIGLYCERIDES 125 mg/dL (0-150); VLDL 25 (0-39)
[2024-11-23 07:58] LABS: C-REACTIVE PROTEIN 1.03 MG/DL (0.00-0.29)
[2024-11-23 08:00] VITALS: BP 110/73; O2SAT 97
[2024-11-23] MEDS ORDERED: Cyanocobalamin/Mecobalamin 1 TAB.SL SL SCH (09:48)
[2024-11-23] MEDS ORDERED: SOD FERRIC GLUC COMPLX/SUCROSE 62.5 MG in 0.9 % SODIUM CHLORIDE 50 ML IV SCH (09:48)
[2024-11-23] MEDS ORDERED: MAGNESIUM SULFATE IN WATER 50 ML IV NR (11:00)
[2024-11-23] MEDS ORDERED: POTASSIUM CHLORIDE 20MEQ/100ML H2O PB IV NR ×2 (13:00)
[2024-11-23] MEDS ORDERED: TRAMADOL HCL 50 MG TABLET PO PRN (13:15)
[2024-11-23 16:34] VITALS: BP 100/55; O2SAT 98
[2024-11-24 00:46] VITALS: BP 94/54; O2SAT 95
[2024-11-24 08:00] VITALS: BP 90/65; O2SAT 97
[2024-11-24 19:17] VITALS: BP 100/61; O2SAT 96
[2024-11-24] MEDS ORDERED: TPN (Para identificar pt. en TPN) IV SCH (20:00)
[2024-11-24] MEDS ORDERED: MELATONIN 5 MG TABLET PO SCH (21:00)
[2024-11-25 01:08] VITALS: BP 98/67; O2SAT 97
[2024-11-25 08:00] VITALS: BP 80/46; O2SAT 100
[2024-11-25 12:00] VITALS: BP 97/50; O2SAT 100
[2024-11-25] MEDS ORDERED: 0.9 % SODIUM CHLORIDE 1,000 ML IV SCH (13:30)
[2024-11-25 17:00] VITALS: BP 107/71; O2SAT 98
[2024-11-26 01:18] VITALS: BP 98/73; O2SAT 100
[2024-11-26 08:11] LABS: MEAN CELL VOLUME 87.4 fL (80.00-100.00); MEAN CORPUSCULAR HGB CONC 34.8 g/dl (32.0-36.0); PLATELET COUNT 217 K/uL (150-450)
[2024-11-26 08:27] LABS: HEMOGLOBIN 9.7 g/dL (12.0-15.00); MEAN CORPUSCULAR HEMOGLOBIN 30.3 pg (27.00-32.0)
[2024-11-26 08:37] LABS: ALBUMIN 2.5 gm/dL (3.4-5.0); BILIRUBIN TOTAL 0.22 mg/dL (0.3-1.2); CALCIUM 8.5 mg/dL (8.5-10.1); CREATININE SERUM 0.42 mg/dL (0.55-1.02); GFR 153.38; GLOBULINA 3.1 G/DL (2.4-3.5); MAGNESIUM 1.9 mg/dL (1.8-2.4); POTASSIUM 3.88 mEq/L (3.5-5.1); TOTAL PROTEIN 5.6 gm/dL (6.4-8.2)
[2024-11-26 09:51] LABS: C-REACTIVE PROTEIN 0.49 MG/DL (0.00-0.29); PHOSPHOROUS 1.8 mg/dL (2.5-4.9)
[2024-11-26] MEDS ORDERED: AMINO ACIDS/PROTEIN HYDROLYS 30 ML BLIST.PACK PO SCH (10:32)
[2024-11-26] MEDS ORDERED: POTASSIUM PHOS,M-BASIC-D-BASIC 3 MM/ML VIAL IV NR (10:45)
[2024-11-26 10:52] VITALS: BP 114/60; O2SAT 99
[2024-11-26] MEDS ORDERED: AMINO ACIDS 1 EACH TABLET PO SCH (17:00)
[2024-11-26 18:56] VITALS: BP 97/53; O2SAT 95
[2024-11-26] MEDS ORDERED: ZOLPIDEM TARTRATE 10 MG TABLET PO SCH (21:00)
[2024-11-27] VITALS: BP 107/73; BP 179/81; O2SAT 100; O2SAT 99
[2024-11-27] MEDS ORDERED: THIAMINE HCL 100 MG/ML 2 ML VIAL IV SCH (09:00)
[2024-11-27 09:16] VITALS: BP 134/69; O2SAT 97
[2024-11-27 18:31] VITALS: BP 94/59; O2SAT 98
[2024-11-28 00:30] VITALS: BP 97/68; O2SAT 100
[2024-11-28] MEDS ORDERED: TRAMADOL HCL 50 MG TABLET PO PRN (09:30)
[2024-11-28 12:03] VITALS: BP 126/76; O2SAT 97
[2024-11-28] MEDS ORDERED: BUTALB/ACETAMINOPHEN/CAFFEINE 1 TAB TABLET PO PRN (13:15)
[2024-11-28 16:00] VITALS: BP 89/55; O2SAT 96
[2024-11-29] VITALS: BP 90/75; O2SAT 96
[2024-11-29 08:00] VITALS: BP 112/70; O2SAT 100
[2024-11-29 16:55] VITALS: BP 91/61; O2SAT 95
[2024-11-30] VITALS: BP 107/67; O2SAT 96
[2024-11-30 07:09] LABS: HEMATOCRIT 27.4 % (36.0-45.00); MEAN CELL VOLUME 86.8 fL (80.00-100.00); MEAN CORPUSCULAR HGB CONC 34.8 g/dl (32.0-36.0); PLATELET COUNT 219 K/uL (150-450); RED BLOOD COUNT 3.15 M/uL (4.00-6.00); RED CELL DISTRIBUTION WIDTH 16.4 % (11.5-14.5)
[2024-11-30 07:10] LABS: INR 1.01; PARTIAL THROMBOPLASTIN TIME 33.1 SECONDS (22.0-34.0)
[2024-11-30 07:17] LABS: HEMOGLOBIN 9.5 g/dL (12.0-15.00); MEAN CORPUSCULAR HEMOGLOBIN 30.1 pg (27.00-32.0)
[2024-11-30 08:00] VITALS: BP 98/66; O2SAT 97
[2024-11-30 08:01] LABS: ALBUMIN 2.6 gm/dL (3.4-5.0); ALKALINE PHOSPHATASE 50 U/L (50-136); ALT/SGPT 25 U/L (12-78); ANION GAP 9 (10.0-20.0); AST/SGOT 28 U/L (15-37); BILIRUBIN TOTAL 0.22 mg/dL (0.3-1.2); BILIRUBIN,CONJUGATED < 0.10 mg/dL (0.0-0.2); BILIRUBIN,UNCONJUGATED 0.12 mg/dL (0.0-0.6); BLOOD UREA NITROGEN 12 mg/dL (7-18); BUN CREA RATIO 33 (7.0-25.0); CALCIUM 8.7 mg/dL (8.5-10.1); CARBON DIOXIDE 26 mEq/L (21-32); CHLORIDE 114 mmol/L (98-107); CHOL HDL RATIO 4.4 (0-5.0); CHOLESTEROL 132 mg/dL (0-200); CREATININE SERUM 0.36 mg/dL (0.55-1.02); GFR 183.25; GLUCOSE FASTING 119 mg/dL (65-100); HDL 30 mg/dl (40-60); LDL 57 mg/dl (0-130); OSMOLALITY SERUM 290 MOSM/KG (275-295); PHOSPHOROUS 2.4 mg/dL (2.5-4.9); POTASSIUM 3.93 mEq/L (3.5-5.1); SODIUM 145 mmol/L (136-145); TOTAL PROTEIN 5.6 gm/dL (6.4-8.2); VLDL 45 (0-39)
[2024-11-30 08:03] LABS: TRIGLYCERIDES 227 mg/dL (0-150)
[2024-11-30 09:18] LABS: UREA CLEARANCE 35.2 ML/MIN
[2024-11-30] MEDS ORDERED: MAGNESIUM SULFATE IN WATER 50 ML IV NR (12:00)
[2024-11-30] MEDS ORDERED: FUROsemide 20 MG/2 ML VIAL IV SCH (13:15)
[2024-11-30 16:00] VITALS: BP 103/47; O2SAT 99
[2024-12-01] VITALS: BP 88/51; O2SAT 96
[2024-12-01 03:03] VITALS: BP 112/75
[2024-12-01] MEDS ORDERED: POTASSIUM PHOS,M-BASIC-D-BASIC 3 MM/ML VIAL IV NR (07:45)
[2024-12-01 08:00] VITALS: BP 106/71; O2SAT 95
[2024-12-01 11:45] LABS: HEMATOCRIT 39.7 % (36.0-45.00); HEMOGLOBIN 13.4 g/dL (12.0-15.00); MEAN CELL VOLUME 88.6 fL (80.00-100.00); MEAN CORPUSCULAR HEMOGLOBIN 29.9 pg (27.00-32.0); MEAN CORPUSCULAR HGB CONC 33.7 g/dl (32.0-36.0); PLATELET COUNT 232 K/uL (150-450); RED BLOOD COUNT 4.48 M/uL (4.00-6.00); RED CELL DISTRIBUTION WIDTH 15.9 % (11.5-14.5)
[2024-12-01] MEDS ORDERED: METRONIDAZOLE/SODIUM CHLORIDE 500 MG/100 ML PIGGYBACK IV ONE ×2 (21:00)
[2024-12-01] MEDS ORDERED: BUPIVACAINE HCL 30 ML VIAL IJ ONE (21:00)
[2024-12-01] MEDS ORDERED: LIDOCAINE HCL 1% 2ML VIAL IJ ONE (21:00)
[2024-12-01] MEDS ORDERED: CEFTRIAXONE SODIUM 1,000 MG VIAL IV ONE (21:00)
[2024-12-01] MEDS ORDERED: ONDANSETRON HCL 2 MG/ML VIAL IV PRN (21:15)
[2024-12-01] MEDS ORDERED: MORPHINE SULFATE 4 MG/ML CARTRIDGE IV PRN (21:15)
[2024-12-01] MEDS ORDERED: OxyCODONE HCL 5 MG TABLET (ROXICODONE) PO PRN (21:15)
[2024-12-01] MEDS ORDERED: MORPHINE SULFATE 4 MG/ML VIAL IV ONE ×2 (22:30→23:00)
[2024-12-01 23:52] LABS: HEMATOCRIT 31.4 % (36.0-45.00); HEMOGLOBIN 10.7 g/dL (12.0-15.00); MEAN CELL VOLUME 87.1 fL (80.00-100.00); MEAN CORPUSCULAR HEMOGLOBIN 29.7 pg (27.00-32.0); MEAN CORPUSCULAR HGB CONC 34.1 g/dl (32.0-36.0); PLATELET COUNT 240 K/uL (150-450); RED BLOOD COUNT 3.61 M/uL (4.00-6.00); RED CELL DISTRIBUTION WIDTH 15.9 % (11.5-14.5)
[2024-12-02] MEDS ORDERED: METOCLOPRAMIDE HCL 5 MG/ML VIAL IV SCH (01:00)
[2024-12-02] MEDS ORDERED: GABAPENTIN 300 MG CAPSULE PO SCH (01:00)
[2024-12-02 01:22] VITALS: BP 102/68; O2SAT 100
[2024-12-02] MEDS ORDERED: ACETAMINOPHEN 500 MG GEL..CAP PO SCH (02:00)
[2024-12-02 07:39] LABS: HEMATOCRIT 33.1 % (36.0-45.00); HEMOGLOBIN 11.3 g/dL (12.0-15.00); MEAN CELL VOLUME 88.1 fL (80.00-100.00); MEAN CORPUSCULAR HEMOGLOBIN 30.1 pg (27.00-32.0); MEAN CORPUSCULAR HGB CONC 34.2 g/dl (32.0-36.0); PLATELET COUNT 202 K/uL (150-450); RED BLOOD COUNT 3.76 M/uL (4.00-6.00); RED CELL DISTRIBUTION WIDTH 16.3 % (11.5-14.5)
[2024-12-02 08:04] VITALS: BP 93/60; O2SAT 95
[2024-12-02 08:05] LABS: ALBUMIN 2.1 gm/dL (3.4-5.0); CALCIUM 8.2 mg/dL (8.5-10.1); CREATININE SERUM 0.74 mg/dL (0.55-1.02); GFR 79.78; POTASSIUM 4.38 mEq/L (3.5-5.1)
[2024-12-02 08:33] LABS: MAGNESIUM 1.3 mg/dL (1.8-2.4)
[2024-12-02] MEDS ORDERED: HYOSCYAMINE SULFATE 0.125 MG TAB.SUBL SL SCH (09:00)
[2024-12-02] MEDS ORDERED: FAMOTIDINE/PF 20 MG/2 ML VIAL IV PUSH SCH (09:00)
[2024-12-02] MEDS ORDERED: LACTULOSE 20 G/30 ML BLIST.PACK PO SCH (09:00)
[2024-12-02] MEDS ORDERED: SIMETHICONE 125 MG CAPSULE PO SCH (09:00)
[2024-12-02] MEDS ORDERED: MAGNESIUM SULFATE IN WATER 50 ML IV NR (12:00)
[2024-12-02] MEDS ORDERED: ENOXAPARIN SODIUM 40 MG/0.4 ML SYRINGE SUBCUTANEO SCH (17:00)
[2024-12-02] MEDS ORDERED: POLYETHYLENE GLYCOL 3350 17 GM BLIST.PACK PO SCH (17:00)
[2024-12-02 17:02] VITALS: BP 91/61
[2024-12-02] MEDS ORDERED: ENOXAPARIN SODIUM 40 MG/0.4 ML SYRINGE SUBCUTANEO NR (19:00)
[2024-12-03 00:40] VITALS: BP 100/68; O2SAT 100
[2024-12-03 06:49] LABS: HEMATOCRIT 30.6 % (36.0-45.00); HEMOGLOBIN 10.6 g/dL (12.0-15.00); MEAN CELL VOLUME 87.4 fL (80.00-100.00); MEAN CORPUSCULAR HEMOGLOBIN 30.2 pg (27.00-32.0); MEAN CORPUSCULAR HGB CONC 34.6 g/dl (32.0-36.0); PLATELET COUNT 194 K/uL (150-450); RED BLOOD COUNT 3.51 M/uL (4.00-6.00); RED CELL DISTRIBUTION WIDTH 16.6 % (11.5-14.5)
[2024-12-03 07:33] LABS: CALCIUM 9.5 mg/dL (8.5-10.1); CREATININE SERUM 0.64 mg/dL (0.55-1.02); GFR 94.34; POTASSIUM 4.49 mEq/L (3.5-5.1)
[2024-12-03 08:43] VITALS: BP 86/62; O2SAT 100
[2024-12-03] MEDS ORDERED: ENOXAPARIN SODIUM 40 MG/0.4 ML SYRINGE SUBCUTANEO SCH (09:00)
[2024-12-03 16:00] VITALS: BP 96/62; O2SAT 94
[2024-12-04] VITALS: BP 97/60; O2SAT 95
[2024-12-04] MEDS ORDERED: PROMETHAZINE HCL 25 MG/ML AMPUL IM PRN (08:15)
[2024-12-04] MEDS ORDERED: MEPERIDINE HCL/PF 25 MG/ML VIAL IM PRN (08:15)
[2024-12-04 09:23] VITALS: BP 116/72; O2SAT 97
[2024-12-04 16:00] VITALS: BP 101/66; O2SAT 95
[2024-12-04] MEDS ORDERED: FAMOtidine 20 MG TABLET PO SCH (21:00)
[2024-12-05 00:46] VITALS: BP 137/78; O2SAT 98
[2024-12-05 07:40] LABS: HEMATOCRIT 29.1 % (36.0-45.00); HEMOGLOBIN 9.8 g/dL (12.0-15.00); MEAN CELL VOLUME 88.8 fL (80.00-100.00); MEAN CORPUSCULAR HGB CONC 33.8 g/dl (32.0-36.0); PLATELET COUNT 237 K/uL (150-450); RED BLOOD COUNT 3.28 M/uL (4.00-6.00); RED CELL DISTRIBUTION WIDTH 16.9 % (11.5-14.5)
[2024-12-05 07:49] LABS: CALCIUM 9.6 mg/dL (8.5-10.1); CREATININE SERUM 0.62 mg/dL (0.55-1.02); GFR 97.86; MAGNESIUM 1.7 mg/dL (1.8-2.4); PHOSPHOROUS 3.6 mg/dL (2.5-4.9); POTASSIUM 4.88 mEq/L (3.5-5.1)
[2024-12-05 09:11] VITALS: BP 113/69; O2SAT 98
[2024-12-05] MEDS ORDERED: SOD FERRIC GLUC COMPLX/SUCROSE 62.5 MG in 0.9 % SODIUM CHLORIDE 50 ML IV NR (11:45)
[2024-12-05 13:00] VITALS: BP 103/57; O2SAT 95
[2024-12-05 16:00] VITALS: BP 106/63; O2SAT 92
[2024-12-05] MEDS ORDERED: LOPERAMIDE HCL 2 MG CAPSULE PO STA (16:02)
[2024-12-06 01:00] VITALS: BP 104/71; O2SAT 94
[2024-12-06] MEDS ORDERED: SOD FERRIC GLUC COMPLX/SUCROSE 62.5 MG in 0.9 % SODIUM CHLORIDE 50 ML IV SCH (09:00)
[2024-12-06] MEDS ORDERED: LOPERAMIDE HCL 2 MG CAPSULE PO NR (11:00)
[2024-12-06 14:51] VITALS: BP 114/74; O2SAT 93
[2024-12-06 16:00] VITALS: BP 96/62; O2SAT 94
[2024-12-06] MEDS ORDERED: LOPERAMIDE HCL 2 MG CAPSULE PO SCH (17:00)
[2024-12-06] MEDS ORDERED: ZOLPIDEM TARTRATE 10 MG TABLET PO SCH (21:00)
[2024-12-07 00:29] VITALS: BP 102/65; O2SAT 95
[2024-12-07 07:31] LABS: HEMATOCRIT 30.3 % (36.0-45.00); HEMOGLOBIN 10.3 g/dL (12.0-15.00); MEAN CORPUSCULAR HEMOGLOBIN 30.4 pg (27.00-32.0); MEAN CORPUSCULAR HGB CONC 34.1 g/dl (32.0-36.0); PLATELET COUNT 319 K/uL (150-450); RED CELL DISTRIBUTION WIDTH 16.5 % (11.5-14.5)
[2024-12-07 08:00] VITALS: BP 98/58; O2SAT 94
[2024-12-07 08:24] LABS: ALBUMIN 2.6 gm/dL (3.4-5.0); BILIRUBIN TOTAL 0.49 mg/dL (0.3-1.2); CALCIUM 10.1 mg/dL (8.5-10.1); CREATININE SERUM 0.61 mg/dL (0.55-1.02); GFR 99.71; MAGNESIUM 1.9 mg/dL (1.8-2.4); PHOSPHOROUS 3.6 mg/dL (2.5-4.9); POTASSIUM 4.5 mEq/L (3.5-5.1); TOTAL PROTEIN 6.6 gm/dL (6.4-8.2)
[2024-12-07] MEDS ORDERED: CLOTRIMAZOLE 10 MG TROCHE MM SCH (09:00)
[2024-12-07] MEDS ORDERED: 0.9 % SODIUM CHLORIDE 500 ML IV SCH (12:15)
[2024-12-07] MEDS ORDERED: LOPERAMIDE HCL 2 MG CAPSULE PO SCH (17:00)
[2024-12-07 17:11] VITALS: BP 105/69; O2SAT 96
[2024-12-08 00:33] VITALS: BP 104/69; O2SAT 97
[2024-12-08 08:00] VITALS: BP 101/68; O2SAT 95
== END 2024-12-08 17:20 | disposition home or self-care (01) | DRG 329 ==
LOC: ER 08:55 → SURH 16:20 → SEC-K 16:20 → SURH 19:21
PROVIDERS: Emergency Medicine; General Practice; Internal Medicine; Internal Medicine Geriatric Medicine; ADMIT Colon & Rectal Surgery; ATTEND Colon & Rectal Surgery
PROC: BW21YZZ Computerized Tomography (CT Scan) of Abdomen and Pelvis using Other Contrast (ICD-10-PCS; 2024-11-18)
PROC: 02HV33Z Insertion of Infusion Device into Superior Vena Cava, Percutaneous Approach (ICD-10-PCS; 2024-11-20)
PROC: 30233N1 Transfusion of Nonautologous Red Blood Cells into Peripheral Vein, Percutaneous Approach (ICD-10-PCS; 2024-11-30)
PROC: 0DTN4ZZ Resection of Sigmoid Colon, Percutaneous Endoscopic Approach (ICD-10-PCS; principal; 2024-12-02)
PROC: 0DBP4ZZ Excision of Rectum, Percutaneous Endoscopic Approach (ICD-10-PCS; 2024-12-02)
PROC: 0D1B4Z4 Bypass Ileum to Cutaneous, Percutaneous Endoscopic Approach (ICD-10-PCS; 2024-12-02)
PROC: 0DT84ZZ Resection of Small Intestine, Percutaneous Endoscopic Approach (ICD-10-PCS; 2024-12-02)
PROC: 0DJD8ZZ Inspection of Lower Intestinal Tract, Via Natural or Artificial Opening Endoscopic (ICD-10-PCS; 2024-12-02)
DX: K56.690 Other partial intestinal obstruction (principal); K65.1 Peritoneal abscess; E78.5 Hyperlipidemia, unspecified; E03.9 Hypothyroidism, unspecified; I10 Essential (primary) hypertension; E11.9 Type 2 diabetes mellitus without complications; Z79.4 Long term (current) use of insulin; D64.9 Anemia, unspecified

== ENCOUNTER 2025-03-02 10:31 | Inpatient (IN) | payer OTHER ==
[~2025-03-02] VITALS: Ht 165.1 cm; Wt 72.6 kg
[2025-03-02] MEDS ORDERED: NP THYROID60 MG PO (11:35)
[2025-03-02] MEDS ORDERED: INVOKAMET 150-1 EACH PO (11:36)
[2025-03-02] MEDS ORDERED: MINOXIDIL10 MG PO (11:37)
[2025-03-10] MEDS ORDERED: CEFTRIAXONE SODIUM 2,000 MG VIAL ONE (10:12)
[2025-03-10] MEDS ORDERED: METRONIDAZOLE/SODIUM CHLORIDE 500 MG/100 ML PIGGYBACK IV ONE ×2 (10:17)
[2025-03-10] MEDS ORDERED: LIDOCAINE HCL 1%/EPINEPHRINE 20ML VIAL IJ ONE (10:49)
[2025-03-10] MEDS ORDERED: BUPIVACAINE HCL/Mpf 0.5% 10ML VIAL ONE (10:49)
[2025-03-10] MEDS ORDERED: MORPHINE SULFATE 4 MG/ML VIAL IV ONE ×3 (12:45→13:45)
[2025-03-10] MEDS ORDERED: MORPHINE SULFATE 4 MG/ML CARTRIDGE IV PRN (13:15)
[2025-03-10] MEDS ORDERED: ONDANSETRON HCL 2 MG/ML VIAL IV PRN (13:15)
[2025-03-10] MEDS ORDERED: RINGERS SOLUTION,LACTATED 1,000 ML IV SCH (13:15)
[2025-03-10] MEDS ORDERED: OxyCODONE HCL 5 MG TABLET (ROXICODONE) PO PRN (13:15)
[2025-03-10] MEDS ORDERED: ONDANSETRON HCL 2 MG/ML VIAL ONE (13:34)
[2025-03-10] MEDS ORDERED: ACETAMINOPHEN 500 MG GEL..CAP PO SCH (14:00)
[2025-03-10 14:18] LABS: BASO % 0.4 % (0.1-1.2); EOS # 0.02 (0.04-0.54); EOS % 0.4 % (0.7-7.0); HEMATOCRIT 39.3 % (34.1-44.9); LYMPH % 27.1 % (19.3-53.1); MEAN CORPUSCULAR HEMOGLOBIN 30.2 pg (25.6-32.2); MONO # 0.13 (0.24-0.82); MONO % 2.5 % (4.7-12.5); NEUT # 3.59 (1.56-6.13); NEUT % 69.4 % (34.0-71.1); PLATELET COUNT 192 K/uL (163-369); RED CELL DISTRIBUTION WIDTH 13.2 % (11.6-14.4)
[2025-03-10] MEDS ORDERED: DEXTROSE 50 % IN WATER 0.5 G/ML VIAL IV PRN (16:00)
[2025-03-10] MEDS ORDERED: INSULIN LISPRO 1,000 UNIT/10 ML UNITS SUBCUTANEO PRN (16:00)
[2025-03-10] MEDS ORDERED: GABAPENTIN 300 MG CAPSULE PO SCH (17:00)
[2025-03-10] MEDS ORDERED: METOCLOPRAMIDE HCL 5 MG/ML VIAL IV SCH (17:00)
[2025-03-10] MEDS ORDERED: SIMETHICONE 125 MG CAPSULE PO SCH (17:00)
[2025-03-10] MEDS ORDERED: POLYETHYLENE GLYCOL 3350 17 GM BLIST.PACK PO SCH (17:00)
[2025-03-10] MEDS ORDERED: HYOSCYAMINE SULFATE 0.125 MG TAB.SUBL SL SCH (17:00)
[2025-03-10] MEDS ORDERED: SIMETHICONE 125 MG CAPSULE PO ONE ×2 (17:32→22:22)
[2025-03-10] MEDS ORDERED: GABAPENTIN 300 MG CAPSULE PO ONE ×2 (17:32→23:53)
[2025-03-10] MEDS ORDERED: METOCLOPRAMIDE HCL 5 MG/ML VIAL ONE ×2 (17:32→23:52)
[2025-03-10] MEDS ORDERED: HYOSCYAMINE SULFATE 0.125 MG TAB.SUBL ONE (17:32)
[2025-03-10] MEDS ORDERED: FAMOTIDINE/PF 20 MG/2 ML VIAL IV PUSH SCH (21:00)
[2025-03-10] MEDS ORDERED: ACETAMINOPHEN 500 MG GEL..CAP PO ONE ×2 (22:23→23:53)
[2025-03-10] MEDS ORDERED: FAMOTIDINE/PF 20 MG/2 ML VIAL ONE (22:23)
[2025-03-11 02:43] VITALS: BP 124/63; O2SAT 100
[2025-03-11] MEDS ORDERED: LEVOTHYROXINE SODIUM 25 MCG TABLET PO SCH (06:00)
[2025-03-11 08:44] VITALS: BP 90/55; O2SAT 93
[2025-03-11] MEDS ORDERED: LACTOBACILLUS ACIDOPHILUS 1 CAP CAP PO SCH (09:00)
[2025-03-11] MEDS ORDERED: LACTULOSE 20 G/30 ML BLIST.PACK PO SCH (09:00)
[2025-03-11] MEDS ORDERED: PATIENTS OWN MEDICATION (MEDICAMENTO EN PISO) PO SCH (09:00)
[2025-03-11] MEDS ORDERED: INSULIN LISPRO 1,000 UNIT/10 ML UNITS SUBCUTANEO PRN (09:30)
[2025-03-11] MEDS ORDERED: DEXTROSE 50 % IN WATER 0.5 G/ML VIAL IV PRN (09:30)
[2025-03-11 14:35] VITALS: BP 90/60; O2SAT 98
[2025-03-11 16:00] VITALS: BP 115/60; O2SAT 94
[2025-03-11] MEDS ORDERED: ENOXAPARIN SODIUM 40 MG/0.4 ML SYRINGE SUBCUTANEO SCH (17:00)
[2025-03-11 23:56] VITALS: BP 106/63; O2SAT 100
[2025-03-12 07:30] VITALS: BP 110/58; O2SAT 96
[2025-03-12 07:39] LABS: BASO % 0.4 % (0.1-1.2); HEMATOCRIT 36.3 % (34.1-44.9); LYMPH # 1.04 (1.18-3.74); LYMPH % 22.6 % (19.3-53.1); MEAN CORPUSCULAR HEMOGLOBIN 30.5 pg (25.6-32.2); MONO # 0.28 (0.24-0.82); MONO % 6.1 % (4.7-12.5); NEUT # 3.24 (1.56-6.13); NEUT % 70.5 % (34.0-71.1); PLATELET COUNT 184 K/uL (163-369); RED BLOOD COUNT 3.94 M/uL (3.93-5.22); RED CELL DISTRIBUTION WIDTH 13.2 % (11.6-14.4)
[2025-03-12 08:11] LABS: CALCIUM 8.7 mg/dL (8.5-10.1); CREATININE SERUM 0.6 mg/dL (0.55-1.02); GFR 101.63; MAGNESIUM 1.9 mg/dL (1.8-2.4); POTASSIUM 3.43 mEq/L (3.5-5.1)
[2025-03-12 08:34] LABS: PHOSPHOROUS 1.9 mg/dL (2.5-4.9)
[2025-03-12] MEDS ORDERED: ENOXAPARIN SODIUM 40 MG/0.4 ML SYRINGE SUBCUTANEO SCH (09:00)
[2025-03-12] MEDS ORDERED: POTASSIUM PHOS,M-BASIC-D-BASIC 3 MM/ML VIAL IV ONE (11:00)
[2025-03-12] MEDS ORDERED: POTASSIUM CHLORIDE 8 MEQ TABLET PO STA (11:07)
[2025-03-12] MEDS ORDERED: POTASSIUM CHLORIDE 20MEQ/100ML H2O PB IV NR (14:00)
[2025-03-12] MEDS ORDERED: FAMOtidine 20 MG TABLET PO SCH ×2 (17:00→21:00)
== END 2025-03-12 22:38 | disposition home or self-care (01) | DRG 330 ==
LOC: SURH 03-10 09:00 → O/R 03-10 10:17 → SURH 03-10 11:45 → SURG 03-10 19:40
PROVIDERS: Internal Medicine Geriatric Medicine; ADMIT Colon & Rectal Surgery; ATTEND Colon & Rectal Surgery
PROC: 0DBB4ZZ Excision of Ileum, Percutaneous Endoscopic Approach (ICD-10-PCS; principal; 2025-03-10 09:00)
DX: Z43.2 Encounter for attention to ileostomy (principal); K57.32 Diverticulitis of large intestine without perforation or abscess without bleeding; K92.1 Melena; E11.9 Type 2 diabetes mellitus without complications; Z79.4 Long term (current) use of insulin; K62.4 Stenosis of anus and rectum